=== PATIENT | female | born 1995 ===

== ENCOUNTER 2024-05-23 12:24 | Outpatient (CLI) | payer OTHER | END 2024-05-23 12:28 | disposition home or self-care (01) | LOC: PRENATAL 12:24 | PROVIDERS: ATTEND Obstetrics & Gynecology Maternal & Fetal Medicine | DX: O35.9XX0 Maternal care for (suspected) fetal abnormality and damage, unspecified, not applicable or unspecified (principal); O35.3XX0 Maternal care for (suspected) damage to fetus from viral disease in mother, not applicable or unspecified; O45.92 Premature separation of placenta, unspecified, second trimester; Z3A.20 20 weeks gestation of pregnancy ==

== ENCOUNTER 2024-08-14 14:14 | Outpatient (CLI) | payer OTHER | END 2024-08-14 14:16 | disposition home or self-care (01) | LOC: PRENATAL 14:14 | PROVIDERS: ATTEND Obstetrics & Gynecology Maternal & Fetal Medicine | DX: O26.849 Uterine size-date discrepancy, unspecified trimester (principal); O36.8199 Decreased fetal movements, unspecified trimester, other fetus; Z3A.31 31 weeks gestation of pregnancy ==

== ENCOUNTER → 2024-09-13 11:01 | Outpatient (CLI) | payer OTHER | END | disposition home or self-care (01) | LOC: PRENATAL 11:01 | PROVIDERS: ATTEND Obstetrics & Gynecology Maternal & Fetal Medicine | DX: O26.849 Uterine size-date discrepancy, unspecified trimester (principal); O36.8199 Decreased fetal movements, unspecified trimester, other fetus; Z3A.35 35 weeks gestation of pregnancy ==